=== PATIENT | female | born 1970 | race Caucasian/White ===

== ENCOUNTER 2016-08-01 02:15 | Inpatient (IN) | payer SELFPAY ==
[~2016-08-01] VITALS: Ht 167.6 cm; Wt 96.4 kg
[2016-08-01] VITALS (9 sets, daily range): BP systolic 137–223; BP diastolic 65–85; PULSE 53–79; RESP 15–22; TEMP 97.3–97.6; O2SAT 95–98
[~2016-08-01 02:15] MED LIST: AMLO10TA2 PO; CIPR-9 PO; CLON0.3T PO; HYDR25TA35 PO; PAXI10TA2 PO
[2016-08-01] MEDS ORDERED: SODIUM CHLOR 0.9% 1000 ML INJ 1,000 ML IV SCH ×2 (03:10→05:10)
[2016-08-01] MEDS ORDERED: HYDROmorphone HCL PF 2 MG/ML VIAL IVS ONE (03:15)
[2016-08-01] MEDS ORDERED: SODIUM CHLORIDE 0.9% FLUSH 10 ML FLUSH IV FLUSH PRN ×2 (03:15→05:15)
[2016-08-01] MEDS ORDERED: ONDANSETRON HCL 4 MG/2 ML VIAL IVP ONE ×2 (03:15→05:00)
--- NOTE | 2016-08-01 03:19 | PD ---
HPI Chief Complaint: Abdominal Pain Time Seen by Provider: 03:09 Travel History International Travel<30 days: No Contact w/Intl Traveler<30days: No Traveled to known affect area: No History of Present Illness HPI The patient is a 46-year-old female that complains of bilateral upper quadrant pain for 2 days. The pain became intense about 6-8 hours ago. She has nausea without vomiting. She denies any fever. She still has her appendix and gallbladder. The pain is a 10 over 10 and sharp, stabbing and throbbing. She states she drinks alcohol rarely. PFSH Past Medical History Cardiac Catheterization: No Cardiovascular Problems: Yes High Cholesterol: No Chest Pain: Yes Congestive Heart Failure: Yes Diabetes: No Patient Takes Glucophage: No Diminished Hearing: No GERD: Yes Genitourinary: Yes (KIDNEY STONES) Headaches: Yes Hypertension: Yes Immunizations Current: Yes Myocardial Infarction: Yes Tetanus Vaccination: Unknown Influenza Vaccination: No ?: Unknown LMP: 07/06/16 Menopausal: Yes : 3 Para: 2 Miscarriage: 1 : 1 Ectopic : No Ovarian Cysts: No Tubal Ligation: No Past Surgical History Coronary Artery Bypass Graft: No Hysterectomy: No Family History Family Hypercholesterolemia: Yes Social History Alcohol Use: Yes (RARELY) Tobacco Use: Yes (PACK A DAY) Substance Use: No Allergies-Medications (Allergen,Severity, Reaction): Coded Allergies: Aspirin (Verified Allergy, Mild, RASH THROAT SWELLS, 08/01/16) Hydrocodone (Verified Allergy, Mild, ITCH, RASH, 08/01/16) Penicillin (Verified Allergy, Mild, RASH, THROAT SWELLS, 08/01/16) Sulfa (Verified Allergy, Mild, 08/01/16) Codeine (Verified Allergy, Unknown, ITCH,SCRATCH, 08/01/16) Reported Meds & Prescriptions Reported Meds & Active Scripts Active Amlodipine (Amlodipine Besylate) 10 Mg Tab 10 Mg PO DAILY Clonidine (Clonidine HCl) 0.3 Mg Tab 0.3 Mg PO BID Review of Systems Except as stated in HPI: all other systems reviewed are Neg Physical Exam Narrative GENERAL: The patient is alert, oriented 3 in severe abdominal distress with her bilateral upper quadrant pain. Her blood pressure is 223/85 with respirations of 22. Rest the vital signs are normal. SKIN: Focused skin assessment warm/dry. HEAD: Atraumatic. Normocephalic. EYES: Pupils equal and round. No scleral icterus. No injection or drainage. ENT: No nasal bleeding or discharge. Mucous membranes pink and moist. NECK: Trachea midline. No JVD. CARDIOVASCULAR: Regular rate and rhythm. No murmur appreciated. RESPIRATORY: No accessory muscle use. Clear to auscultation. Breath sounds equal bilaterally. GASTROINTESTINAL: Abdomen soft, with tenderness to direct palpation in the bilateral upper quadrants, nondistended. Hepatic and splenic margins not palpable. Slight guarding is present but there is no rebound. Estrada sign appears to be positive. MUSCULOSKELETAL: No obvious deformities. No clubbing. No cyanosis. No edema. NEUROLOGICAL: Awake and alert. No obvious cranial nerve deficits. Motor grossly within normal limits. Normal speech. PSYCHIATRIC: Appropriate mood and affect; insight and judgment normal. Data Data Last Documented VS Vital Signs Date Time Temp Pulse Resp B/P Pulse Ox O2 Delivery O2 Flow Rate FiO2 08/01/16 02:18 97.5 79 22 223/85 97 Room Air Orders Complete Blood Count With Diff (08/01/16 03:10) Comprehensive Metabolic Panel (08/01/16 03:10) Lipase (08/01/16 03:10) Urinalysis - C+S If Indicated (08/01/16 03:10) Ct Abd/Pel W Iv Contrast(Rout) (08/01/16 03:10) Iv Access Insert/Monitor (08/01/16 03:10) Ecg Monitoring (08/01/16 03:10) Oximetry (08/01/16 03:10) Hydromorphone Pf Inj (Dilaudid Pf Inj) (08/01/16 03:15) Ondansetron Inj (Zofran Inj) (08/01/16 03:15) Sodium Chlor 0.9% 1000 Ml Inj (Ns 1000 M (08/01/16 03:10) Sodium Chloride 0.9% Flush (Ns Flush) (08/01/16 03:15) Iohexol 350 Inj (Omnipaque 350 Inj) (08/01/16 03:52) Ondansetron Inj (Zofran Inj) (08/01/16 05:00) Hydromorphone Pf Inj (Dilaudid Pf Inj) (08/01/16 05:00) Place In Observation (08/01/16 ) Vital Signs (Adult) Q4H (08/01/16 05:10) Activity Oob Ad [place] (08/01/16 05:10) Sales Exec / Telemetry .CONTINUOUS (08/01/16 05:10) Diet Clear Liquid (08/01/16 Breakfast) Sodium Chlor 0.9% 1000 Ml Inj (Ns 1000 M (08/01/16 05:10) Sodium Chloride 0.9% Flush (Ns Flush) (08/01/16 05:15) Sodium Chloride 0.9% Flush (Ns Flush) (08/01/16 09:00) Ondansetron Inj (Zofran Inj) (08/01/16 05:15) Comprehensive Metabolic Panel (08/02/16 06:00) Complete Blood Count With Diff (08/02/16 06:00) Lipase (08/02/16 06:00) Case Management Consult (08/01/16 05:10) Naloxone Inj (Narcan Inj) (08/01/16 05:15) Admit Order (Ed Use Only) (08/01/16 05:10) Hydromorphone Pf Inj (Dilaudid Pf Inj) (08/01/16 05:15) Labs Laboratory Tests Test 08/01/16 03:30 White Blood Count 15.2 TH/MM3 Red Blood Count 5.18 MIL/MM3 Hemoglobin 15.5 GM/DL Hematocrit 43.8 % Mean Corpuscular Volume 84.6 FL Mean Corpuscular Hemoglobin 30.0 PG Mean Corpuscular Hemoglobin 35.4 % Concent Red Cell Distribution Width 13.3 % Platelet Count 351 TH/MM3 Mean Platelet Volume 8.8 FL Neutrophils (%) (Auto) 64.6 % Lymphocytes (%) (Auto) 27.1 % Monocytes (%) (Auto) 6.4 % Eosinophils (%) (Auto) 1.3 % Basophils (%) (Auto) 0.6 % Neutrophils # (Auto) 9.9 TH/MM3 Lymphocytes # (Auto) 4.1 TH/MM3 Monocytes # (Auto) 1.0 TH/MM3 Eosinophils # (Auto) 0.2 TH/MM3 Basophils # (Auto) 0.1 TH/MM3 CBC Comment DIFF FINAL Differential Comment Sodium Level 139 MEQ/L Potassium Level 3.2 MEQ/L Chloride Level 107 MEQ/L Carbon Dioxide Level 22.7 MEQ/L Anion Gap 9 MEQ/L Blood Urea Nitrogen 8 MG/DL Creatinine 0.81 MG/DL Estimat Glomerular Filtration 76 ML/MIN Rate Random Glucose 95 MG/DL Calcium Level 8.9 MG/DL Total Bilirubin 0.8 MG/DL Aspartate Amino Transf 12 U/L (AST/SGOT) Alanine Aminotransferase 24 U/L (ALT/SGPT) Alkaline Phosphatase 78 U/L Total Protein 7.9 GM/DL Albumin 4.0 GM/DL Lipase 1714 U/L MDM Medical Decision Making Medical Screen Exam Complete: Yes Emergency Medical Condition: Yes Medical Record Reviewed: Yes Interpretation(s) The CT abdomen pelvis shows inflammatory changes in the tail of the pancreas. The CBC shows a white count of 15,200 but is otherwise unremarkable. The complete metabolic profile shows a potassium of 3.2, GFR of 76 but is otherwise unremarkable. The lipase is 1714. Differential Diagnosis Ulcer pain, acute pancreatitis, perforation peptic ulcer, colitis, cholecystitis , pyelonephritis, dehydration, electrolyte disorder, renal insufficiency Narrative Course The patient has pancreatitis. She has severe pain. She has required multiple doses of Dilaudid and still is in some pain. Diagnosis Primary Impression: Pancreatitis Additional Impression: Intractable abdominal pain Kerwin Lacey MD Aug 01, 2016 03:19
[2016-08-01 03:40] LABS: AUTOMATED NEUTROPHIL # 9.9 TH/MM3 (1.8-7.7); BASOPHIL # 0.1 TH/MM3 (0-0.2); BASOPHIL % 0.6 % (0.0-2.0); EOSINOPHIL # 0.2 TH/MM3 (0-0.4); EOSINOPHIL % 1.3 % (0.0-4.0); HEMATOCRIT 43.8 % (35.0-46.0); HEMO FLAGS DIFF FINAL; LYMPH % 27.1 % (9.0-44.0); LYMPHOCYTE # 4.1 TH/MM3 (1.0-4.8); MEAN CELL VOLUME 84.6 FL (80.0-100.0); MEAN CORPUSCULAR HGB CONC 35.4 % (32.0-36.0); MONO % 6.4 % (0.0-8.0); NEUT % 64.6 % (16.0-70.0); PLATELET COUNT 351 TH/MM3 (150-450); RED BLOOD COUNT 5.18 MIL/MM3 (4.00-5.30); RED CELL DISTRIBUTION WIDTH 13.3 % (11.6-17.2); WHITE BLOOD COUNT 15.2 TH/MM3 (4.0-11.0)
[2016-08-01] MEDS ORDERED: IOHEXOL 350 MG/ML 10 ML VIAL (for RAD DIAG) IV ONE (03:52)
--- NOTE | 2016-08-01 04:10 | RADRPT ---
EXAM DATE/TIME: 08/01/2016 03:49 [facility] COMPARISON: No previous studies available for comparison. INDICATIONS : Epigastric abdominal pain. IV CONTRAST: 90 cc Omnipaque 350 (iohexol) IV ORAL CONTRAST: No oral contrast ingested. RADIATION DOSE: 15.15 CTDIvol (mGy) MEDICAL HISTORY : Myocardial infarction. Congestive heart failure. Hypertension.Kidney stones. SURGICAL HISTORY : None. ENCOUNTER: Initial ACUITY: 2 days PAIN SCALE: 10/10 LOCATION: Epigastric. TECHNIQUE: Volumetric scanning of the abdomen and pelvis was performed. Using automated exposure control and ad justment of the mA and/or kV according to patient size, radiation dose was kept as low as reasonably achievable to obtain optimal diagnostic quality images. FINDINGS: LOWER LUNGS: The visualized lower lungs are clear. LIVER: Homogeneous density without lesion. There is no dilation of the biliary tree. No calcified gallston es. SPLEEN: Normal size without lesion. PANCREAS: There is mild inflammatory type changes involving the tail of the pancreas. The pancreas is normal in size. KIDNEYS: Normal in size and shape. There is no mass or hydronephrosis. A few tiny nonobstructing bilateral re nal calculi are demonstrated. There some mild cortical scarring mid pole left kidney. There is a 1.1 cm cyst along the lower pole the right kidney. ADRENAL GLANDS: Within normal limits. VASCULAR: There is no aortic aneurysm. BOWEL/MESENTERY: The stomach, small bowel, and colon demonstrate no acute abnormality. There is no free intraperitone al air or fluid. A few scattered diverticula along the sigmoid colon. No inflammatory changes. There is stool throughout the colon. The appendix is unremarkable. ABDOMINAL WALL: Within normal limits. RETROPERITONEUM: There is no lymphadenopathy. BLADDER: No wall thickening or mass. REPRODUCTIVE: Within normal limits. INGUINAL: There is no lymphadenopathy or hernia. MUSCULOSKELETAL: Within normal limits for patient age. CONCLUSION: 1. Mild inflammatory type changes involving the tail of the pancreas suggestive of pancreatitis.. 2. Scattered diverticulosis of the sigmoid colon without inflammatory changes. 3. Few tiny nonobstructing bilateral renal calculi. 4. Small benign-appearing right renal cyst measuring 1.1 cm. Brandon Garcia MD on August 01, 2016 at 4:01 Board Certified Radiologist. This report was verified electronically.
[2016-08-01] MEDS ORDERED: HYDROmorphone HCL PF 1 MG/ML VIAL IVS ONE (05:00)
[2016-08-01 05:05] LABS: ANION GAP 9 MEQ/L (5-15)
[2016-08-01 05:08] LABS: ALKALINE PHOSPHATASE 78 U/L (45-117); ALT (GPT) 24 U/L (10-53); AST (GOT) 12 U/L (15-37); BICARBONATE 22.7 MEQ/L (21.0-32.0); BLOOD UREA NITROGEN 8 MG/DL (7-18); CHLORIDE 107 MEQ/L (98-107); GLOMERULAR FILTRATION RATE 76 ML/MIN (>89); POTASSIUM 3.2 MEQ/L (3.5-5.1); SODIUM (NA) 139 MEQ/L (136-145); TOTAL BILIRUBIN ADULT 0.8 MG/DL (0.2-1.0)
[2016-08-01] MEDS ORDERED: ONDANSETRON HCL 4 MG/2 ML VIAL IVP PRN (05:15)
[2016-08-01] MEDS ORDERED: NALOXONE HCL 0.4 MG/ML AMP IV PRN (05:15)
--- NOTE | 2016-08-01 06:22 | HHI.HP ---
[facility] Arianna Pinto MD Admission Diagnosis pancreatitis Diagnoses: Chief Complaint: abdominal pain Travel History International Travel<30 Days: No Contact w/Intl Traveler <30 Da: No Traveled to Known Affected Are: No History of Present Illness This is a 46 year old female patient with past medical history which includes kidney stones, chronic lower back pain, MVP, CHF last EF 12/2016 34%, HTN, PR although patient has never had cardiac stent and cardiac nuclear scan 12/2015 showed no ischemia. Patient reports that she has had sharp stabbing bilateral upper quadrant abdominal pain for the past 2-3 days. This abdominal pain had progressively worse and awake patient from sleep around 0100 therefore patient preceded to ER for further evaluation and treatment. Patient also has been having nausea with no vomiting. Patient thought she was constipation took laxatives then had diarrhea. Patient reports subjective fever. Denies dysuria , blood in urine or stool. Patient reports rare Social ETOH use. Only new medication Thrive supplement OTC. Patient denies shortness of breath or chest pain. Review of Systems Except as stated in HPI: all other systems reviewed are Neg Past Family Social History Past Medical History kidney stones, chronic lower back pain, MVP, CHF last EF 12/2016 34%, HTN, PR although patient has never had cardiac stent and cardiac nuclear scan 12/2015 showed no definite reversible perfusion defects are identified to suggest stress -induced myocardial infarction. Past Surgical History right hand surgery as a child Reported Medications Amlodipine (Amlodipine Besylate) 10 Mg Tab 10 Mg PO DAILY Clonidine (Clonidine HCl) 0.3 Mg Tab 0.3 Mg PO BID fish oil, probiotic, cranberry tablets and thrive OTC supplement Allergies: Coded Allergies: Aspirin (Verified Allergy, Mild, RASH THROAT SWELLS, 08/01/16) Hydrocodone (Verified Allergy, Mild, ITCH, RASH, 08/01/16) Penicillin (Verified Allergy, Mild, RASH, THROAT SWELLS, 08/01/16) Sulfa (Verified Allergy, Mild, 08/01/16) Codeine (Verified Allergy, Unknown, ITCH,SCRATCH, 08/01/16) Active Ordered Medications Current Medications Medications (Trade) Dose Ordered Sig/Francesco Route Start Time Stop Time Status Last Admin (NS Flush) 2 ml UNSCH PRN IV FLUSH 08/01/16 05:15 (NS Flush) 2 ml BID IV FLUSH 08/01/16 09:00 (Zofran Inj) 4 mg Q6H PRN IVP 08/01/16 05:15 (Narcan Inj) 0.4 mg UNSCH PRN IV 08/01/16 05:15 (Dilaudid Pf Inj) 0.2 mg Q4H PRN IV PUSH 08/01/16 05:15 Family History Brother had leukemia Mother secondary to PR at age 63 Father secondary to stomach cancer at age 57 Social History smokes 1 PPD ETOH use rarely denies illict drug use Physical Exam Vital Signs Vital Signs Date Time Temp Pulse Resp B/P Pulse Ox O2 Delivery O2 Flow Rate FiO2 08/01/16 05:55 60 15 167/73 95 Nasal Cannula 2 08/01/16 02:18 97.5 79 22 223/85 97 Room Air Physical Exam GENERAL: This is a well-nourished, well-developed patient, in no apparent distress. SKIN: No rashes, ecchymoses or lesions. Cool and dry. HEAD: Atraumatic. Normocephalic. No temporal or scalp tenderness. EYES: Extraocular motions intact. No scleral icterus. No injection or drainage. CARDIOVASCULAR: Regular rate and rhythm without murmurs, gallops, or rubs. RESPIRATORY: Clear to auscultation. Breath sounds equal bilaterally. No wheezes , rales, or rhonchi. GASTROINTESTINAL: Abdomen soft, tender through out R and L upper quadrants MUSCULOSKELETAL: Extremities without clubbing, cyanosis, or edema. No joint tenderness, effusion, or edema noted. No calf tenderness. Negative Homans sign bilaterally. NEUROLOGICAL: Awake and alert. Motor and sensory grossly within normal limits. Five out of 5 muscle strength in all muscle groups. Normal speech. Laboratory Laboratory Tests Test 08/01/16 03:30 White Blood Count 15.2 Red Blood Count 5.18 Hemoglobin 15.5 Hematocrit 43.8 Mean Corpuscular Volume 84.6 Mean Corpuscular Hemoglobin 30.0 Mean Corpuscular Hemoglobin 35.4 Concent Red Cell Distribution Width 13.3 Platelet Count 351 Mean Platelet Volume 8.8 Neutrophils (%) (Auto) 64.6 Lymphocytes (%) (Auto) 27.1 Monocytes (%) (Auto) 6.4 Eosinophils (%) (Auto) 1.3 Basophils (%) (Auto) 0.6 Neutrophils # (Auto) 9.9 Lymphocytes # (Auto) 4.1 Monocytes # (Auto) 1.0 Eosinophils # (Auto) 0.2 Basophils # (Auto) 0.1 CBC Comment DIFF FINAL Differential Comment Sodium Level 139 Potassium Level 3.2 Chloride Level 107 Carbon Dioxide Level 22.7 Anion Gap 9 Blood Urea Nitrogen 8 Creatinine 0.81 Estimat Glomerular Filtration 76 Rate Random Glucose 95 Calcium Level 8.9 Total Bilirubin 0.8 Aspartate Amino Transf 12 (AST/SGOT) Alanine Aminotransferase 24 (ALT/SGPT) Alkaline Phosphatase 78 Total Protein 7.9 Albumin 4.0 Lipase 1714 Result Diagram: 08/01/1632908/01/16329 Imaging Last Impressions Abdomen/Pelvis CT 08/01/16309 Signed Impressions: Service Date/Time: , August 01, 2016 03:49 - CONCLUSION: 1. Mild inflammatory type changes involving the tail of the pancreas suggestive of pancreatitis.. 2. Scattered diverticulosis of the sigmoid colon without inflammatory changes. 3. Few tiny nonobstructing bilateral renal calculi. 4. Small benign-appearing right renal cyst measuring 1.1 cm. Brandon Garcia MD Assessment and Plan Problem List: (1) Pancreatitis ICD Code: K85.90 Status: Acute (2) Intractable abdominal pain ICD Code: R10.9 Status: Acute Assessment and Plan This is a 46 year old female patient with past medical history which includes kidney stones, chronic lower back pain, MVP, CHF last EF 12/2016 34%, HTN, PR although patient has never had cardiac stent and cardiac nuclear scan 12/2015 showed no ischemia. Patient reports that she has had sharp stabbing bilateral upper quadrant abdominal pain for the past 2-3 days. This abdominal pain had progressively worse and awake patient from sleep around 0100 therefore patient preceded to ER for further evaluation and treatment. Patient reports rare social ETOH use. Only new medication Thrive supplement OTC. Pancreatitis- acute, lipase 1714 With intractable abdominal pain requiring IV pain medication has received IV fluids total of 1600ml NS while in ER patient with possible CHF 12/2015- EF 34%- DC IV fluids- encourage PO fluid intake CT scan reviewed and reveals: Mild inflammatory type changes involving the tail of the pancreas suggestive of pancreatitis. Scattered diverticulosis of the sigmoid colon without inflammatory changes. Few tiny nonobstructing bilateral renal calculi. Small benign-appearing right renal cyst measuring 1.1 cm. Instructed the patient to stop taking Thrive OTC supplement Clear liquid diet recheck lipase in AM Dilaudid IV as needed for pain Possible chronic systolic CHF, nuclear stress test 12/2015 showed EF of 34%- does not appear to be in acute exacerbation MVP echocardiogram- if EF low patient may be a candidate for LifeVest vs defibrillator HTN- chronic continue home medications amlodipine and clonidine monitor trend Hypokalemia replaced in ER Recheck in AM DVT prophylaxis with SCDs Discussed with ER provider, nursing inpatient Written by Nicolette Faith, acting as scribe for Dr. Palmer on 08/01/16 at 06: 38. This note was transcribed by scribe [Nicolette Faith]. I, Dr. Jose G Palmer personally performed the history, physical exam, and medical decision making; and confirmed the accuracy of the information in the transcribed note. Authenticated by Dr. Jose G Palmer on 08/01/16 at 06:38. Nicolette Faith Aug 01, 2016 06:22 Jose G Palmer MD August 05, 2016 07:21
[2016-08-01] MEDS: SODIUM CHLORIDE 0.9% FLUSH 10 ML FLUSH IV FLUSH SCH ×2 (08:30→21:42)
[2016-08-01] MEDS ORDERED: cloNIDine HCL 0.2 MG TAB PO SCH (09:00)
[2016-08-01] MEDS ORDERED: cloNIDine HCL 0.3 MG TAB PO SCH (09:00)
[2016-08-01] MEDS: POTASSIUM CHLOR 10 MEQ PREMIX 100 ML IV SCH ×3 (10:06→18:36)
--- NOTE | 2016-08-01 11:04 | EC ---
Study Study Date:08/01/2016 STUDY CONCLUSIONS SUMMARY - Procedure narrative: Transthoracic echocardiography. Image quality was fair. Scanning was performed from the parasternal, apical, and subcostal acoustic windows. - Left ventricle: The cavity size was normal. Wall thickness was normal. Systolic function was normal. The estimated ejection fraction was in the range of 50% to 55%. Although no diagnostic regional wall motion abnormality was identified, this possibility cannot be completely excluded on the basis of this study. - Mitral valve: Trace regurgitation. If LV function is below 40, please consider prescribing an ACEI or ARB or document rationale for non-use. PROCEDURE DATA STUDY STATUS: Elective. Procedure: Transthoracic echocardiography. Image quality was fair. Scanning was performed from the parasternal, apical, and subcostal acoustic windows. Study completion: The patient tolerated the procedure well. Transthoracic echocardiography. M-mode, complete 2D, complete spectral Doppler, and color Doppler. Height: Height: 66in. Weight: Weight: 175.6lb. Body mass index: BMI: 28.4kg/m^2. Body surface area: BSA: 1.89m^2. Patient status: Inpatient. CARDIAC ANATOMY LEFT VENTRICLE: The cavity size was normal. Wall thickness was normal. Systolic function was normal. The estimated ejection fraction was in the range of 50% to 55%. Although no diagnostic regional wall motion abnormality was identified, this possibility cannot be completely excluded on the basis of this study. AORTIC VALVE: Trileaflet; normal thickness leaflets. Doppler: Transvalvular velocity was within the normal range. There was no stenosis. No regurgitation. Valve area: 1.83cm^2 (Vmax). Indexed valve area: 0.97cm^2/m^2 (Vmax). AORTA: Aortic root: The aortic root was normal in size. MITRAL VALVE: Structurally normal valve. Doppler: Transvalvular velocity was within the normal range. There was no evidence for stenosis. Trace regurgitation. Peak gradient: 3mm Hg (D). LEFT ATRIUM: The atrium was normal in size. RIGHT VENTRICLE: The cavity size was normal. Wall thickness was normal. PULMONIC VALVE: Doppler: Transvalvular velocity was within the normal range. There was no evidence for stenosis. No regurgitation. TRICUSPID VALVE: Structurally normal valve. Doppler: Transvalvular velocity was within the normal range. No regurgitation. PULMONARY ARTERY: The main pulmonary artery was normal-sized. Systolic pressure was within the normal range. RIGHT ATRIUM: The atrium was normal in size. PERICARDIUM: There was no pericardial effusion. SYSTEMIC VEINS: Inferior vena cava: The vessel was normal in size. Patient weight: 175.6lb _Ejection fraction:_ 65-75% _Fractional shortening:_ 32% up to 5Kg 5-11.5Kg 11.6-22.9Kg 23-45Kg 45-57Kg Aortic Root 7-13 <17 13-22 17-27 17-27 LA diam 6-13 <23 24-38 33-47 37-40 RVID 10-17 7-15 7-15 7-18 8-17 LVIDd 12-22 <32 24-38 33-47 37-40 LVPW 2-4 3-6 5-7 6-8 7-8 IVS 2-4 3-6 5-7 6-8 7-8 BASIC MEASUREMENTS ADULT NORMAL Left ventricle LV internal dimension, ED, chordal *53.6 mm 43-52 level, PLAX LV internal dimension, ES, chordal *45.7 mm 23-38 level, PLAX Fractional shortening, chordal level, *15 % >29 PLAX LV posterior wall thickness, ED 13.2 mm IVS/LVPW ratio, ED 1.01 <1.3 Ventricular septum Septal thickness, ED 13.3 mm Aortic valve Leaflet separation 20 mm 15-26 BASIC MEASUREMENTS ADULT NORMAL Aortic valve Leaflet separation 20 mm 15-26 Aorta Root diameter, ED 29 mm 20-37 Left atrium Anterior-posterior dimension, ES 38 mm 19-40 Anterior-posterior dimension index, ES 2.01 cm/m^2 <2.2 LA/aortic root ratio 1.31 DOPPLER MEASUREMENTS ADULT NORMAL Main pulmonary artery Pressure, S 16 mm Hg =30 Aortic valve Peak velocity, S 137 cm/s Valve area, Vmax 1.83 cm^2 Valve area index, Vmax 0.97 cm^2/m^2 Mitral valve Peak E-wave velocity 81.4 cm/s Peak A-wave velocity 60.7 cm/s Deceleration time *282 ms 150-230 Peak gradient, D 3 mm Hg Peak E/A ratio 1.3 Maximal regurgitant velocity 209 cm/s Tricuspid valve Regurgitant peak velocity 167 cm/s Peak RV-RA gradient, S 11 mm Hg Maximal regurgitant velocity 167 cm/s Systemic veins Estimated CVP 10 mm Hg Right ventricle RV pressure, S 21 mm Hg <30 Pulmonic valve Peak velocity, S 113 cm/s LEGEND: Mean values are shown as u=mean value. Asterisk (*) walker values outside specified normal range. Prepared and signed by Dino Ny [id number]
[2016-08-01 11:34] LABS: BLOOD, URINE NEG (NEG); COMMENT (UR) CULT NOT INDICATED; CULTURE IF INDICATED CULT NOT INDICATED; GLUCOSE,URINE NEG (NEG); KETONE, URINE NEG (NEG); MUCUS URINE FEW /lpf (OCC); NITRITE,URINE NEG (NEG); PH, URINE 6.5 (5.0-8.5); SQUAMOUS EPITHELIAL CELL URINE 3 /hpf (0-5); URINE COLOR YELLOW (YELLW/STRAW)
[2016-08-01] MEDS: HYDROmorphone HCL PF 1 MG/ML VIAL IV PUSH PRN ×2 (11:58→23:18)
[2016-08-01] MEDS: ACETAMINOPHEN 325 MG TAB PO PRN ×2 (15:04→21:45)
[2016-08-01] MEDS ORDERED: hydrALAZINE HCL 10 MG TAB PO PRN (18:30)
[2016-08-02 04:00] VITALS: BP 168/79; PULSE 57; RESP 18; TEMP 97.4; O2SAT 95
[2016-08-02 05:20] VITALS: BP 190/81
[2016-08-02 07:08] LABS: BASOPHIL % 0.6 % (0.0-2.0); EOSINOPHIL # 0.2 TH/MM3 (0-0.4); EOSINOPHIL % 2.5 % (0.0-4.0); HEMATOCRIT 43.1 % (35.0-46.0); HEMO FLAGS DIFF FINAL; LYMPH % 37.5 % (9.0-44.0); LYMPHOCYTE # 2.9 TH/MM3 (1.0-4.8); MEAN CELL VOLUME 85.9 FL (80.0-100.0); MEAN CORPUSCULAR HEMOGLOBIN 29.8 PG (27.0-34.0); MEAN CORPUSCULAR HGB CONC 34.6 % (32.0-36.0); MONO % 7.7 % (0.0-8.0); NEUT % 51.7 % (16.0-70.0); PLATELET COUNT 287 TH/MM3 (150-450); RED BLOOD COUNT 5.01 MIL/MM3 (4.00-5.30); RED CELL DISTRIBUTION WIDTH 13.3 % (11.6-17.2); WHITE BLOOD COUNT 7.7 TH/MM3 (4.0-11.0)
--- NOTE | 2016-08-02 07:28 | HHI.PR ---
Subjective Remarks Patient walking in the room. Very inpatient. Says she wants to live. Labs are still pending. Patient is yelling and threatens to live AMA. Objective Vitals Vital Signs Date Time Temp Pulse Resp B/P Pulse Ox O2 Delivery O2 Flow Rate FiO2 08/02/16 05:20 190/81 08/02/16 04:00 97.4 57 18 168/79 95 08/01/16 23:00 97.3 55 17 152/68 97 08/01/16 20:10 56 08/01/16 20:00 97.5 55 17 183/73 98 08/01/16 17:10 97.5 54 20 157/71 98 08/01/16 15:50 97.6 58 20 142/67 97 08/01/16 13:17 53 17 137/65 96 Nasal Cannula 2 08/01/16 08:25 64 21 174/79 96 Nasal Cannula 2 I/O 08/01/16 08/01/16 08/01/16 08/02/16 08/02/16 08/02/16 07:00 15:00 23:00 07:00 15:00 23:00 Intake Total 75 ml 300 ml 240 ml 120 ml Balance 75 ml 300 ml 240 ml 120 ml Intake Oral 300 ml 240 ml 120 ml IV Total 75 ml # Voids 3 2 2 # Bowel Movements 0 0 0 Result Diagram: 08/02/16 0552 08/01/16 0330 Imaging Last Impressions Abdomen/Pelvis CT 08/01/160 Signed Impressions: Service Date/Time: July 03:49 - CONCLUSION: 1. Mild inflammatory type changes involving the tail of the pancreas suggestive of pancreatitis.. 2. Scattered diverticulosis of the sigmoid colon without inflammatory changes. 3. Few tiny nonobstructing bilateral renal calculi. 4. Small benign-appearing right renal cyst measuring 1.1 cm. Brandon Garcia MD Objective Remarks GENERAL: This is a well-nourished, well-developed patient, in no apparent distress. Yelling in the room. Frightening liveang AMA, and calling family law attorney SKIN: No rashes, ecchymoses or lesions. Cool and dry. HEAD: Atraumatic. Normocephalic. NEUROLOGICAL: Awake and alert. A/P Problem List: (1) Pancreatitis ICD Code: K85.90 Status: Acute (2) Intractable abdominal pain ICD Code: R10.9 Status: Acute Assessment and Plan This is a 46 year old female patient with past medical history which includes kidney stones, chronic lower back pain, MVP, CHF last EF 12/2016 34%, HTN, [place] although patient has never had cardiac stent and cardiac nuclear scan 12/2015 showed no ischemia. Patient reports that she has had sharp stabbing bilateral upper quadrant abdominal pain for the past 2-3 days. This abdominal pain had progressively worse and awake patient from sleep around 0100 therefore patient preceded to ER for further evaluation and treatment. Patient reports rare social ETOH use. Only new medication Thrive supplement OTC. Pancreatitis- acute, lipase 1714 on admission, repeat trending down With intractable abdominal pain requiring IV pain medication has received IV fluids total of 1600ml NS while in ER patient with possible CHF 12/2015- EF 34%- DC IV fluids- encourage PO fluid intake CT scan reviewed and reveals: Mild inflammatory type changes involving the tail of the pancreas suggestive of pancreatitis. Scattered diverticulosis of the sigmoid colon without inflammatory changes. Few tiny nonobstructing bilateral renal calculi. Small benign-appearing right renal cyst measuring 1.1 cm. Instructed the patient to stop taking Thrive OTC supplement Clear liquid diet lipase trending down Dilaudid IV as needed for pain Hold amlodipine because is associated with pancreatitis Hold clonidine because patient is noted with persistent bradycardia HR in 50s and 40s on telemetry. Will give hydralazine. Explained to the patient, however she did not express understanding. Possible chronic systolic CHF, nuclear stress test 12/2015 showed EF of 34%- does not appear to be in acute exacerbation MVP echocardiogram- if EF low patient may be a candidate for LifeVest vs defibrillator HTN- chronic continue home medications amlodipine and clonidine monitor trend Hypokalemia replaced in ER Recheck in AM DVT prophylaxis with SCDs Discussed with the patient, nurse Patient threatens to live AMA Discharge Planning Patient left JEANINEA Jocelin Jara MD Aug 02, 2016 07:28
[2016-08-02 08:02] LABS: ALKALINE PHOSPHATASE 74 U/L (45-117); ALT (GPT) 23 U/L (10-53); ANION GAP 8 MEQ/L (5-15); AST (GOT) 15 U/L (15-37); BICARBONATE 24.4 MEQ/L (21.0-32.0); BLOOD UREA NITROGEN 4 MG/DL (7-18); CHLORIDE 108 MEQ/L (98-107); GLOMERULAR FILTRATION RATE 109 ML/MIN (>89); MAGNESIUM 1.9 MG/DL (1.5-2.5); SODIUM (NA) 140 MEQ/L (136-145); TOTAL BILIRUBIN ADULT 1.2 MG/DL (0.2-1.0)
[2016-08-02 08:14] LABS: POTASSIUM 2.9 MEQ/L (3.5-5.1)
[2016-08-02] MEDS ORDERED: POTASSIUM CHLORIDE 10 MEQ CONTROLLED RELEASE TAB PO ONE (08:30)
[2016-08-02] MEDS ORDERED: hydrALAZINE HCL 25 MG TAB PO SCH (09:00)
[2016-08-15] MEDS ORDERED: CLON0.3T PO (16:14)
== END 2016-08-02 09:30 | disposition left against medical advice (07) | DRG 439 ==
LOC: NEPC 02:15 → INTOOBSV 05:12 → NEDA 05:12 → OBSVTOIN 06:45 → HOCA 13:37
PROVIDERS: ADMIT Hospitalist; ATTEND Hospitalist
DX: K85.90 Acute pancreatitis without necrosis or infection, unspecified (principal); I50.22 Chronic systolic (congestive) heart failure; K21.9 Gastro-esophageal reflux disease without esophagitis; Z88.0 Allergy status to penicillin; Z88.6 Allergy status to analgesic agent; Z88.5 Allergy status to narcotic agent; Z88.2 Allergy status to sulfonamides; I10 Essential (primary) hypertension; Z87.442 Personal history of urinary calculi; F17.210 Nicotine dependence, cigarettes, uncomplicated; I25.2 Old myocardial infarction; N28.1 Cyst of kidney, acquired; K57.30 Diverticulosis of large intestine without perforation or abscess without bleeding; E87.6 Hypokalemia; Z80.0 Family history of malignant neoplasm of digestive organs; Z80.6 Family history of leukemia; R00.1 Bradycardia, unspecified
CPT/HCPCS: 74177; 80053; 81001; 83690; 83735; 84478; 85025; 93306; 96361; 96374; 96375; J1170; J2405; J3480; J7030; Q9967